=== PATIENT | male | born 1985 | race Caucasian/White ===

== ENCOUNTER 2019-12-28 16:46 | Outpatient (CLI) | payer BC, SELFPAY ==
--- NOTE | ~2019-12-28 | XR_ITS ---
EXAMINATION: XR chest 2V DATE: 12/28/2019 17:05 INDICATION: Shortness of breath TECHNIQUE: PA and lateral views of the chest are obtained. COMPARISON: None available FINDINGS: The lungs are free of acute opacities. There is no pleural effusion or pneumothorax. The ca rdiomediastinal silhouette is normal. The visualized bones and soft tissues are unremarkable. IMPRESSION: 1. No acute cardiopulmonary abnormality. Reviewed, dictated and finalized at location A.
== END 2019-12-28 16:47 | disposition home or self-care (01) ==
LOC: ANHIMG 16:51
PROVIDERS: PCP Family Medicine; Visit Provider Nurse Practitioner Family
DX: R06.02 Shortness of breath (principal)
CPT/HCPCS: 71046

== ENCOUNTER 2020-06-27 11:36 | Outpatient (NON) | payer BC, SELFPAY ==
[2020-06-29 13:14] LABS: SARS-CoV-2 RNA PCR Positive
== END 2020-06-27 11:37 ==
LOC: ANHCOVIDDT 11:38
PROVIDERS: PCP Family Medicine; Visit Provider Family Medicine
DX: R68.89 Other general symptoms and signs (principal); Z20.828 Contact with and (suspected) exposure to other viral communicable diseases
CPT/HCPCS: 87635; C9803; U0003

== ENCOUNTER 2020-07-26 09:04 | Outpatient (CLI) | payer BC, SELFPAY ==
--- NOTE | 2020-07-26 09:57 | EST_ITS ---
Patient Info Name: Dax Evangelista Age: 35 years : 1985 Gender: Male Ht: 69 in Wt: 220 lbs BSA: 2.24 m2 BP: 146 / 67 mmHg Heart Rhythm: Sinus Rhythm Exam Date: 07/26/2020 10:17 AM Exam Location: [facility] Stress Patient Status: Outpatient Admit Date: 07/26/2020 Staff Ordering Physician: Italia Gates Attending Provider: Italia Gates Exercise Technologist: Jerald Baez RDCS Exercise Physician: Chet Brink MD Exam Type: CA stress test treadmill Study Info Indications R07.89 - Other chest pain A treadmill exercise stress test was performed. Summary 1. Exercise capacity very good at >10 METS. 2. No chest discomfort with stress test. 3. Normal regular exercise treadmill stress test without ischemic EKG changes up to a level 88% of maximum predicted heart rate for age. 4. Hypertensive blood pressure response. Protocol: Toi Stress ECG Details Stage: REST Duration (min): 1 min : 31 sec Speed (mph): 0.0 Grade (%): 0 HR (bpm): 68 SBP (mmHg): 146 DBP (mmHg): 67 METS: --- Stage: REST Duration (min): 57 min : 16 sec Speed (mph): 0.0 Grade (%): 0 HR (bpm): 79 SBP (mmHg): 146 DBP (mmHg): 67 METS: --- Stage: STAGE 1 Duration (min): 1 min : 0 sec Speed (mph): 1.7 Grade (%): 10 HR (bpm): 105 SBP (mmHg): 146 DBP (mmHg): 67 METS: --- Stage: STAGE 1 Duration (min): 2 min : 0 sec Speed (mph): 1.7 Grade (%): 10 HR (bpm): 104 SBP (mmHg): 146 DBP (mmHg): 67 METS: --- Stage: STAGE 1 Duration (min): 3 min : 0 sec Speed (mph): 1.7 Grade (%): 10 HR (bpm): 105 SBP (mmHg): 157 DBP (mmHg): 53 METS: --- Stage: STAGE 2 Duration (min): 1 min : 0 sec Speed (mph): 2.5 Grade (%): 12 HR (bpm): 119 SBP (mmHg): 157 DBP (mmHg): 53 METS: --- Stage: STAGE 2 Duration (min): 2 min : 0 sec Speed (mph): 2.5 Grade (%): 12 HR (bpm): 122 SBP (mmHg): 197 DBP (mmHg): 74 METS: --- Stage: STAGE 2 Duration (min): 3 min : 0 sec Speed (mph): 2.5 Grade (%): 12 HR (bpm): 122 SBP (mmHg): 197 DBP (mmHg): 74 METS: --- Stage: STAGE 3 Duration (min): 1 min : 0 sec Speed (mph): 3.4 Grade (%): 14 HR (bpm): 134 SBP (mmHg): 179 DBP (mmHg): 112 METS: --- Stage: STAGE 3 Duration (min): 2 min : 0 sec Speed (mph): 3.4 Grade (%): 14 HR (bpm): 137 SBP (mmHg): 179 DBP (mmHg): 112 METS: --- Stage: STAGE 3 Duration (min): 3 min : 0 sec Speed (mph): 3.4 Grade (%): 14 HR (bpm): 145 SBP (mmHg): 208 DBP (mmHg): 97 METS: --- Stage: STAGE 4 Duration (min): 1 min : 0 sec Speed (mph): 4.2 Grade (%): 16 HR (bpm): 159 SBP (mmHg): 208 DBP (mmHg): 97 METS: --- Stage: STAGE 4 Duration (min): 2 min : 0 sec Speed
== END 2020-07-26 09:05 | disposition home or self-care (01) ==
PROVIDERS: PCP Family Medicine; Visit Provider Nurse Practitioner Family
DX: R07.89 Other chest pain (principal)
CPT/HCPCS: 93017

== ENCOUNTER → 2021-02-22 15:40 | Outpatient (CLI) | payer BC, SELFPAY ==
--- NOTE | ~2021-02-22 | US_ITS ---
EXAMINATION: US thyroid EXAM DATE: 02/22/2021 16:07 INDICATION: Nontoxic goiter, unspecified. TECHNIQUE: Multiple grayscale and Doppler images of the thyroid were obtained (by a technologist who performed the scan) and subsequently reviewed. Individual nodules and recommendations may be reporte d in accordance with TI-RADS system as designated by the 2017 ACR White Paper TI-RADS committee. Klaus elation is made to MR thoracic spine 09/25/2018. FINDINGS: Right thyroid lobe measures 5.0 x 1.8 x 1.9 cm, the left measuring 4.2 x 1.7 x 1.7 cm. Mildly diffuse ly heterogeneous thyroid echogenicity. There is a focal region which was measured in the deep aspect of the right thyroid lobe, probably just heterogeneous region of right thyroid parenchyma rather than isoechoic nodule. Largest definite nodule is completely cystic measuring 5 mm in the right thyroid l obe likely benign. IMPRESSION: 1. Mild thyromegaly. Reviewed, dictated and finalized at location A. IMPRESSION: 1. Mild thyromegaly.
== END ==
PROVIDERS: PCP Family Medicine; Visit Provider Internal Medicine Endocrinology, Diabetes & Metabolism
DX: E04.9 Nontoxic goiter, unspecified (principal)
CPT/HCPCS: 76536

== ENCOUNTER → 2021-03-22 15:17 | Outpatient (CLI) | payer BC, SELFPAY ==
--- NOTE | ~2021-03-22 | MR_ITS ---
EXAMINATION: MR pituitary wo/w con DATE: 03/22/2021 17:00 INDICATION: Abnormal pituitary function tests. TECHNIQUE: Magnetic resonance imaging (MRI) of the brain and brainstem was performed without with 19 mL MultiHance intravenous contrast. Whole-brain sequences included sagittal T1-weighted FSE, axial di ffusion-weighted FS EPI, axial T2*-weighted GRE, axial T2-weighted FLAIR Propeller, and axial T2-weig hted Propeller. Small tcokd-zq-nacn sequences included sagittal and coronal T1-weighted FSE centered at the pituitary. Postcontrast sequences included small gzhct-ih-otgb coronal T1-weighted FSE in a t wiliam course and sagittal T1-weighted FSE and whole-brain axial T1-weighted FSE. Apparent diffusion xavi fficient (ADC) maps were created. COMPARISON: Head CT 05/18/2013 FINDINGS: The pituitary is normal in size with height of 5 mm and concave superior margin. The infund ibulum is at midline. There is no intracranial hemorrhage, acute infarction, or abnormal intracranial mass lesion. The ventricles are normal in size. There is mild mucosal thickening in the paranasal si nuses. The orbits are normal. There is a left mastoid effusion. IMPRESSION: 1. Normal brain. Normal pituitary. Reviewed, dictated and finalized at location A.
[2021-03-22 15:49] LABS: Estimated Glomerular Filt Rate 58
== END ==
PROVIDERS: PCP Family Medicine; Visit Provider Internal Medicine Endocrinology, Diabetes & Metabolism
DX: R94.7 Abnormal results of other endocrine function studies (principal)
CPT/HCPCS: 70553; A9577

== ENCOUNTER 2021-03-31 07:23 | Outpatient (CLI) | payer BC, SELFPAY ==
--- NOTE | 2021-04-24 14:37 | WPDHOMESLEEP ---
Sleep Study - Home Unattended Date of Study: 03/31/21 Ordering Provider: Awilda Davidson, Interpreting Provider: Marcelle Wade MD Home Sleep Study Type: Apnea Link Air Height: 1.75 m Weight: 99.79 kg Body Mass Index: 32.5 Neck Circumference (inches): 17 Speculator: 5 Reason for Sleep Study Difficulty getting to sleep, non restorative sleep, excessive daytime sleepiness. Sleep History Dax Evangelista is a 35 year old man who has had sleep issues since the . His main complaint is that his sleep is not restful. This is been going on for 4 years. There is a family history with his father likely having sleep apnea but has not been diagnosed yet. This patient has difficulty falling asleep, he wakes up during the night and he has excessive daytime sleepiness. He does not awaken from sleep feeling short of breath or awaken at night with heartburn, belching or coughing. He constantly snores loudly. He frequently has trouble sleeping with a cold. He does not wake up gasping for breath at night. He constantly has breathing problems at others report to him and he constantly sweats excessively at night. He does not notice his heart pounding or beating irregularly at night. He does not fall asleep during the day or fall asleep involuntarily. He does not fall asleep while driving. He does not have loss of muscle tone with strong emotion. He has daytime difficulties due to excessive sleepiness, works in security. He does not feel paralyzed on waking or falling asleep. He frequently has vivid dreamlike scenes upon awakening or falling asleep. He is not frayed to go to sleep. He rarely has nightmares. He occasionally remembers his dreams. He constantly has racing thoughts. He rarely feels sad depressed or anxious. He does not have muscular tension. He occasionally notices parts of his body jerking. He rarely kicks at night or have crawling aching feelings in his legs. He rarely has any kind of leg pain at night. He does not have morning jaw pain or grind his teeth during sleep. He constantly is bothered by pain during the day. He rarely is awakened by pain at night. He constantly wakes up feeling stiff in the morning, frequently with sore achy muscles and constantly with pain in the neck and spine. He has fatigue and memory problems. He used Lunesta in 2008. Now, he uses [id number] ZzzQuil alternating with melatonin every other month. He has a history of deviated nasal septum, recurrent pansinusitis, chronic rhinitis, enlarged nasal turbinates with a septoplasty in 2019 and reduction of his turbinates. He also was treated for a gastric ulcer and GERD. He reports a 30 lb weight loss in the last year. He has low testosterone and is on replacement. Normal bedtime is between 8:00 p.m. and 11:00 p.m., taking hours to fall asleep, typically waking 3-6 times during the night. While awake, he goes to urinate, has a snack, drinks water and then returns to bed. He is able to return to sleep within 3-5 minutes. He wakes between 3 and 6:00 a.m.. His weekend schedule is the same. He estimates getting 7-11 hours of sleep at night. He does take naps in the afternoon or evening. A short nap is not refreshing. He is usually drowsy for 3 hours or longer after waking. He feels better in the morning compared to other times of day. Habits: He quit tobacco years ago. Caffeine 2 cups per day. No alcohol or recreational drugs. 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
[2021-04-24 14:49] VITALS: BMI 32.5
== END 2021-04-04 11:54 | disposition home or self-care (01) ==
LOC: ANHCSM 07:24
PROVIDERS: PCP Family Medicine; Visit Provider Internal Medicine Endocrinology, Diabetes & Metabolism
DX: G47.39 Other sleep apnea (principal); Z72.821 Inadequate sleep hygiene
CPT/HCPCS: 95806